=== PATIENT | female | born 1955 | race Caucasian/White ===

== ENCOUNTER 2021-11-03 07:40 | Day surgery (SDC) | payer OTHER ==
[2021-11-03] MEDS ORDERED: Depo-Medrol 40 MG/ML IM ONE (07:41)
[2021-11-03] MEDS ORDERED: BUPIVACAINE 0.5% VIAL IJ ONE (07:41)
[2021-11-03] MEDS ORDERED: Xylocaine 1% Vial 30 ML PF IJ ONE (07:41)
[2021-11-03] MEDS ORDERED: Lactated Ringers 1,000 ML IV ONE (09:52)
--- NOTE | 2021-11-03 10:22 | XRAY ---
Indication: Right SI joint injection. Intraoperative fluoroscopy provided for 8 seconds. 2 digital spot image submitted for interpretation demonstrates posterior needle tip projecting over the inferior right SI joint. Correlate with intraoperative findings/report.
--- NOTE | 2021-11-03 11:18 | XRAY ---
8 seconds fluoroscopy time in surgery for injection of the right SI joint.
== END 2021-11-03 09:52 | disposition home or self-care (01) ==
LOC: SDC-PAIN 07:40
PROVIDERS: ATTEND Psychiatry & Neurology Pain Medicine
DX: M46.1 Sacroiliitis, not elsewhere classified (principal)
CPT/HCPCS: 27096; 72020; 77002; 82947; J1030; J2001; G0260

== ENCOUNTER 2021-12-08 07:24 | Day surgery (SDC) | payer OTHER ==
[2021-12-08] MEDS ORDERED: Marcaine Mpf 0.5% Vial 30 Ml IJ ONE (07:25)
[2021-12-08] MEDS ORDERED: Depo-Medrol 40 MG/ML IM ONE (07:25)
[2021-12-08] MEDS ORDERED: DIPRIVAN 200 MG/20 ML IV ONE (08:58)
[2021-12-08] MEDS ORDERED: Lactated Ringers 1,000 ML IV ONE (09:30)
--- NOTE | 2021-12-08 09:55 | XRAY ---
Indication: Right hip injection. Intraoperative fluoroscopy provided for 19 seconds. Single digital spot image submitted for interpretation demonstrates needle tip projecting lateral to right femur neck. Small amount of contrast injected for needle tip placement. Correlate with intraoperative findings/report.
--- NOTE | 2021-12-08 11:34 | XRAY ---
19 seconds of fluoroscopy was used in surgery for a right intra-articular hip injection.
== END 2021-12-08 09:23 | disposition home or self-care (01) ==
LOC: SDC-PAIN 07:24
PROVIDERS: ATTEND Psychiatry & Neurology Pain Medicine
DX: M16.11 Unilateral primary osteoarthritis, right hip (principal); E11.9 Type 2 diabetes mellitus without complications; Z79.899 Other long term (current) drug therapy
CPT/HCPCS: 20610; 73501; 77002; 82947; J1030; J2704; Q9966

== ENCOUNTER 2022-08-31 07:22 | Day surgery (SDC) | payer OTHER ==
[2022-08-31] MEDS ORDERED: BUPIVACAINE 0.5% VIAL IJ ONE (07:23)
[2022-08-31] MEDS ORDERED: Depo-Medrol 40 MG/ML IM ONE (07:23)
[2022-08-31] MEDS ORDERED: DIPRIVAN 200 MG/20 ML IV ONE (09:08)
--- NOTE | 2022-08-31 09:57 | XRAY ---
Indication: Right SI joint and right hip injections. Intraoperative fluoroscopy provided for 25 seconds. 3 digital spot images obtained prone submitted for interpretation demonstrates needle tip projecting over the right SI joint. Second needle tip lateral to the right femur neck with small amount of contrast injected for needle tip placement. Correlate with intraoperative findings/report.
--- NOTE | 2022-08-31 09:59 | XRAY ---
25 seconds of fluoroscopy was used in surgery for a right sacroiliac joint and intra-articular hip injection.
[2022-08-31] MEDS ORDERED: Lactated Ringers 1,000 ML IV ONE (13:13)
== END 2022-08-31 09:40 | disposition home or self-care (01) ==
LOC: SDC-PAIN 07:22
PROVIDERS: ATTEND Psychiatry & Neurology Pain Medicine
DX: M46.1 Sacroiliitis, not elsewhere classified (principal); M16.11 Unilateral primary osteoarthritis, right hip; E11.9 Type 2 diabetes mellitus without complications; Z79.899 Other long term (current) drug therapy
CPT/HCPCS: 20610; 27096; 73501; 77002; 82947; J1030; J2704; Q9966; G0260

== ENCOUNTER 2022-10-05 07:41 | Day surgery (SDC) | payer OTHER, MEDICARE ==
[2022-10-05] MEDS ORDERED: Depo-Medrol 40 MG/ML IM ONE (07:42)
[2022-10-05] MEDS ORDERED: LIDOCAINE HCL 2% 100 MG/5 ML IJ ONE (07:42)
[2022-10-05] MEDS ORDERED: DIPRIVAN 200 MG/20 ML IV ONE (09:30)
--- NOTE | 2022-10-05 10:15 | XRAY ---
Indication: Bilateral L4-S1 MBB Intraoperative fluoroscopy provided for 19 seconds. Single digital spot image submitted for interpretation demonstrates posterior needle tips projecting over the expected left and right L4-S1 nerve roots. Correlate with intraoperative findings/report.
--- NOTE | 2022-10-05 10:24 | XRAY ---
19 seconds of fluoroscopy was used in surgery for a bilateral L4-S1 MBB.
[2022-10-05] MEDS ORDERED: Lactated Ringers 1,000 ML IV ONE (10:35)
== END 2022-10-05 10:00 | disposition home or self-care (01) ==
LOC: SDC-PAIN 07:41
PROVIDERS: ATTEND Psychiatry & Neurology Pain Medicine
DX: M47.816 Spondylosis without myelopathy or radiculopathy, lumbar region (principal); E11.9 Type 2 diabetes mellitus without complications; Z79.899 Other long term (current) drug therapy
CPT/HCPCS: 64493; 64494; 72020; 77002; 82947; J1030; J2704

== ENCOUNTER 2022-11-09 07:59 | Day surgery (SDC) | payer OTHER ==
[2022-11-09] MEDS ORDERED: BUPIVACAINE 0.5% VIAL IJ ONE (08:00)
[2022-11-09] MEDS ORDERED: Depo-Medrol 40 MG/ML IM ONE (08:00)
[2022-11-09] MEDS ORDERED: DIPRIVAN 200 MG/20 ML IV ONE (09:09)
--- NOTE | 2022-11-09 11:23 | XRAY ---
Indication: Bilateral L4-S1 MBB. Intraoperative fluoroscopy provided 14 seconds. Single digital spot image submitted for interpretation demonstrates posterior needle tips projecting over the expected left and right L4-S1 nerve roots. Correlate with intraoperative findings/report.
--- NOTE | 2022-11-09 11:41 | XRAY ---
14 seconds of fluoroscopy was used in surgery for a bilateral L4-S1 MBB.
[2022-11-09] MEDS ORDERED: Lactated Ringers 1,000 ML IV ONE (12:19)
== END 2022-11-09 09:40 | disposition home or self-care (01) ==
LOC: SDC-PAIN 07:59
PROVIDERS: ATTEND Psychiatry & Neurology Pain Medicine
DX: M47.816 Spondylosis without myelopathy or radiculopathy, lumbar region (principal); E11.9 Type 2 diabetes mellitus without complications; Z79.899 Other long term (current) drug therapy
CPT/HCPCS: 64493; 64494; 72020; 77002; 82947; J1030; J2704

== ENCOUNTER 2022-12-28 07:10 | Day surgery (SDC) | payer OTHER ==
[2022-12-28] MEDS ORDERED: Depo-Medrol 40 MG/ML IM ONE (07:11)
[2022-12-28] MEDS ORDERED: BUPIVACAINE 0.5% VIAL IJ ONE (07:11)
[2022-12-28] MEDS ORDERED: LIDOCAINE HCL 1% 50 MG/5 ML VL PF IJ ONE (07:11)
[2022-12-28] MEDS ORDERED: DIPRIVAN 200 MG/20 ML IV ONE ×2 (09:04→09:20)
[2022-12-28] MEDS ORDERED: Lactated Ringers 1,000 ML IV ONE (14:26)
--- NOTE | 2022-12-28 19:10 | XRAY ---
Indication: Right L4-S1 RFA. Intraoperative fluoroscopy provided for 26 seconds. 3 digital spot image submitted for interpretation demonstrates posterior needle tips projecting over the expected right L4-S1 nerve roots. Correlate with intraoperative findings/report.
--- NOTE | 2022-12-28 19:25 | XRAY ---
26 seconds of fluoroscopy was used in surgery for a right L4-S1 RFA.
== END 2022-12-28 09:40 | disposition home or self-care (01) ==
LOC: SDC-PAIN 07:10
PROVIDERS: ATTEND Psychiatry & Neurology Pain Medicine
DX: M47.816 Spondylosis without myelopathy or radiculopathy, lumbar region (principal); E11.9 Type 2 diabetes mellitus without complications; Z79.899 Other long term (current) drug therapy
CPT/HCPCS: 64635; 64636; 72100; 77002; 82947; J1030; J2001; J2704

== ENCOUNTER 2023-01-04 06:50 | Day surgery (SDC) | payer OTHER ==
[2023-01-04] MEDS ORDERED: Depo-Medrol 40 MG/ML IM ONE (06:51)
[2023-01-04] MEDS ORDERED: LIDOCAINE HCL 1% 50 MG/5 ML VL PF IJ ONE (06:51)
[2023-01-04] MEDS ORDERED: BUPIVACAINE 0.5% VIAL IJ ONE (06:51)
[2023-01-04] MEDS ORDERED: DIPRIVAN 200 MG/20 ML IV ONE (08:29)
--- NOTE | 2023-01-04 10:07 | XRAY ---
Indication: Left L4-S1 RFA. Intraoperative fluoroscopy provided for 24 seconds. 5 digital spot image submitted for interpretation demonstrates posterior needle tips projecting over the expected left L4-S1 nerve roots. Correlate with intraoperative findings/report.
--- NOTE | 2023-01-04 10:07 | XRAY ---
24 seconds of fluoroscopy was used in surgery for a left L4-S1 RFA.
[2023-01-04] MEDS ORDERED: Lactated Ringers 1,000 ML IV ONE (13:40)
== END 2023-01-04 09:00 | disposition home or self-care (01) ==
LOC: SDC-PAIN 06:50
PROVIDERS: ATTEND Psychiatry & Neurology Pain Medicine
DX: M47.816 Spondylosis without myelopathy or radiculopathy, lumbar region (principal); E11.9 Type 2 diabetes mellitus without complications; Z79.899 Other long term (current) drug therapy
CPT/HCPCS: 64635; 64636; 72100; 77002; 82947; J1030; J2001; J2704